=== PATIENT | female | born 1990 | race African-American/Black ===

== ENCOUNTER 2017-04-05 18:19 | Emergency (ER) | payer OTHER ==
--- NOTE | 2017-04-05 18:56 | PDOC ---
Attending Attestation - ED Attending Attestation I have performed the following: I have examined & evaluated the patient, The case was reviewed & discussed with the resident, I agree w/resident's findings & plan, Exceptions are as noted - HPI HPI: 04/05/17 21:35 The patient is a 26 year old female who is , approximately 4 weeks by LMP, who presents to the ED complaining of 3 days of intermittent vaginal bleeding with associated mild suprapubic cramping radiating to the right lower back. Denies heavy bleeding, states intermittent spotting with no clots. The patient denies fever or chills. She denies nausea, vomiting, or diarrhea. She denies abnormal vaginal discharge. She denies frequency, urgency, or dysuria. She has not taken any medications for her current symptoms. She has not yet established care. - Physicial Exam PE: 04/05/17 21:35 agree with resident exam - Medical Decision Making 04/06/17 00:04 FINDINGS: Positive for a single live intrauterine gestation with measurements corresponding to 6 weeks 3 days. A yolk sac is visualized. heart rate 115 beats per minute. No acute or sac abnormalities. There may be a complex left ovarian cyst measuring approximately 1.9 cm. Otherwise normal left ovary. Normal right ovary. THIS DOCUMENT HAS BEEN ELECTRONICALLY SIGNED Jayjay Olivier MD 04/05/2017 23:53 EST Documentation prepared by Yari Beckham, acting as medical dermatologist for Tyler Brewer MD. <Yari Beckham - Last Filed: 04/06/17 00:03> - Resident Resident Name: Sidra Whittaker - ED Attending Attestation I have performed the following: I have examined & evaluated the patient, The case was reviewed & discussed with the resident, I agree w/resident's findings & plan, Exceptions are as noted - Medical Decision Making 04/06/17 00:47 26-year-old female presents with vaginal spotting. Vitals unremarkable. Exam with closed os, scant blood in vault. No CMT, no midline or adnexal ttp. Likely threatened AB, will obtain labs including beta and type and screen and TVUS. 04/06/17 01:55 Labs wnl. TVUS with 6 week with FHR. UA negative for infection. Type and screen was QNS and thus has been resent and pending. 04/06/17 02:34 Spoke with lab, type and screen being run. 04/06/17 03:17 lab called again, type and screen still being run 04/06/17 03:54 Pt is B+. Will DC I discussed the physical exam findings, ancillary test results and final diagnoses with the patient. I answered all of the patient's questions. The patient was satisfied with the care received and felt comfortable with the discharge plan and treatment plan. The patient will call their primary care physician within 24 hours to arrange follow-up and will return to the Emergency Department with any new, persistent or worsening symptoms. <Tyler Brewer - Last Filed: 04/06/17 03:54>
[2017-04-05 19:07] VITALS: BP 108/61; PULSE 69; TEMP 99; BMI 27.4
--- NOTE | 2017-04-05 19:55 | PDOC ---
History of Present Illness - General Chief Complaint: Vaginal Sxs Stated Complaint: VAGINAL BLEEDING Time Seen by Provider: 04/05/17 18:46 History Source: Patient Exam Limitations: No Limitations - History of Present Illness Initial Comments: This is a 26 YOF who is (2 c-sections, one miscarriage, the rest elective abortions) and with h/o anemiua and ischemic CVA in 2013 who presents c/o vaginal spotting and mild suprapubic cramping for the past three days. The vaginal spotting is medium red, scant, and there have been no clots. She believes she is because she had a positive test at [facility] ED shortly after she missed her menstrual period this month. Her LMP was . She has been having constipation, mild headache and mild nausea, but denies any fever, chills, vomiting, numbness, tingling, weakness, vision changes , difficulty walking, or other symptoms. Past History - Past Medical History Home Medications: Ambulatory Orders NK [No Known Home Medication] 04/05/17 Anemia: Yes CVA: Yes (lt side weakness) COPD: No - Reproductive History Is Patient Now?: Yes (#): 6 Para: 2 - Suicide/Smoking/Psychosocial Hx Smoking History: Current every day smoker Number of Cigarettes Smoked Daily: 0 Information on smoking cessation initiated: No Hx Alcohol Use: No Drug/Substance Use Hx: Yes Substance Use Type: Marijuana Review of Systems - Review of Systems Able to Perform ROS?: Yes Constitutional: No: Chills, Fever, Unexplained wgt Loss HEENTM: No: Nose Congestion, Throat Pain Respiratory: No: Cough, Shortness of Breath Cardiac (ROS): No: Chest Pain, Palpitations ABD/GI: Yes: Constipated, Nausea, Other (abdominal pain). No: Diarrhea, Vomiting : Yes: Other (vaginal spotting). No: Burning, Dysuria Musculoskeletal: Yes: Back Pain (left low back pain). No: Neck Pain Integumentary: No: Bruising, Rash Neurological: Yes: Headache (mild). No: Numbness, Tingling, Weakness, Dizziness Endocrine: No: Unexplained Weight Gain, Unexplained Weight Loss *Physical Exam - Vital Signs Last Vital Signs Temp Pulse Resp BP Pulse Ox 99 F 69 16 108/61 100 04/05/17 18:25 04/05/17 18:25 04/05/17 18:25 04/05/17 18:25 04/05/17 18:25 - Physical Exam General Appearance: Yes: Nourished, Appropriately Dressed. No: Apparent Distress HEENT: positive: EOMI, Normal Voice, Hearing Grossly Normal. negative: Scleral Icterus (R), Scleral Icterus (L), Nasal Congestion Neck: positive: Trachea midline, Supple. negative: Tender, Rigid Respiratory/Chest: positive: Lungs Clear, Normal Breath Sounds. negative: Respiratory Distress, Crackles, Rhonchi, Stridor, Wheezing Cardiovascular: positive: Regular Rhythm, Regular Rate. negative: Murmur Gastrointestinal/Abdominal: positive: Normal Bowel Sounds, Soft. negative: Tender, Organomegaly, Pulsatile Mass, Guarding Musculoskeletal: positive: Normal Inspection. negative: Decreased Range of Motion, Vertebral Tenderness Extremity: positive: Normal Capillary Refill, Normal Inspection, Normal Range of Motion. negative: Tender, Cyanosis Integumentary: positive: Normal Color, Dry, Warm. negative: Erythema, Rash, Bruising Neurologic: positive: crew team member II-XII NML intact, Fully Oriented, Alert, Normal Mood/ Affect, Normal Response, Motor Strength 5/5 ED Treatment Course - LABORATORY CBC & Chemistry Diagram: 04/05/17 20:35 04/05/17 20:35 Medical Decision Making - Medical Decision Making 26 YOF who is believes she is about 4 weeks who presents with vaginal spotting and suprapubic cramping x3d. On exam VS wnl and the patient is in no distress, minimal ttp left abdomen, no CVA ttp, no leg swelling, normal neuro exam. On bedside ultrasound gestational sac is visualized without obvious yolk sac or pole or heart beat. DDX IBNLT threatened miscarriage, complete , hematuria, normal menstrual period, etc. Ordered is CBCD, CMP, PT/INR, T&S, UA cx, quant hCG, US early . *DC/Admit/Observation/Transfer Diagnosis at time of Disposition: Threatened miscarriage in early - Discharge Dispostion Disposition: HOME Condition at time of disposition: Stable Admit: No - Referrals - Patient Instructions Printed Discharge Instructions: DI for Threatened Additional Instructions: You were seen in the ER for vaginal bleeding during . We did blood and urine tests and there were no concerning abnormalities. We checked your hormone levels and they are positive at about the number we expect. We did an ultrasound which showed the within your uterus with the baby 's heart rate at about 115 beats/minute. Please follow up with an SOLAR DESIGN ENGINEER doctor for your care. Return to the ER for any new or worsening symptoms like headache, passing out, very heavy vaginal bleeding or passing clots, or severe abdominal pain. - Post Discharge Activity
[2017-04-05 20:57] LABS: BASO % 0.4 % (0-2.0); EOS # 0.2 # (0-4.5); EOS % 4.1 % (0-4.5); LYMPH # 1.1 (8-40); MCH 25.2 pg (25.7-33.7); MCHC 31.7 g/dl (32.0-36.0); MEAN CELL VOLUME 79.5 fl (80-96); MEAN PLT VOLUME 7.9 fl (7.5-11.1); MONO # 0.3 # (3.8-10.2); NEUT # 2.4 # (42.8-82.8); NEUT % 59.9 % (42.8-82.8); PLATELET COUNT 323 K/MM3 (134-434); RDW 24.9 % (11.6-15.6)
[2017-04-05 20:58] LABS: URINE APPEARANCE SLCLOUDY; URINE BILIRUBIN NEGATIVE (NEGATIVE); URINE BLOOD 2+ (NEGATIVE); URINE COLOR LTYELLOW; URINE GLUCOSE (UA) NEGATIVE (NEGATIVE); URINE KETONE NEGATIVE (NEGATIVE); URINE LEUK ESTERASE NEGATIVE (NEGATIVE); URINE NITRITE NEGATIVE (NEGATIVE); URINE PROTEIN NEGATIVE (NEGATIVE); URINE UROBILINOGEN NEGATIVE mg/dL (0.2-1.0)
[2017-04-05 21:00] LABS: URINE BACTERIA RARE /hpf (NONE SEEN); URINE RBC 1 /hpf (0-3); URINE WBC <1 /hpf (3-5)
[2017-04-05 21:11] LABS: INR 1.18 (0.82-1.09); PROTHROMBIN TIME (PATIENT) 13.3 SEC (9.98-11.88)
[2017-04-05 21:27] LABS: ALBUMIN 3.3 g/dl (3.4-5.0); ANION GAP 10 (8-16); BILIRUBIN,TOTAL 0.3 mg/dL (0.2-1.0); CALCIUM 9.1 mg/dL (8.5-10.1); CO2 22 mmol/L (21-32); CREATININE 0.7 mg/dL (0.55-1.02); GLUCOSE,RANDOM 75 mg/dL (74-106); SGOT/AST 15 U/L (15-37); SGPT/ALT 23 U/L (12-78); TOT PROT 7.1 g/dl (6.4-8.2)
[2017-04-05 21:42] LABS: ALK PHOS 60 U/L (45-117)
[2017-04-05 22:25] LABS: ANISOCYTOSIS 2+; MICROCYTOSIS 1+; OVALOCYTE 1+; PLATELET ESTIMATE DECREASED; POIKILOCYTOSIS 1+; POLYCHROMASIA 1+
[2017-04-05 22:50] LABS: URINE LEUK ESTERASE Negative (NEGATIVE)
== END 2017-04-06 04:32 | disposition home or self-care (01) ==
LOC: JER 18:19
DX: O26.891 Other specified pregnancy related conditions, first trimester (principal); Z3A.01 Less than 8 weeks gestation of pregnancy; O20.0 Threatened abortion
CPT/HCPCS: 36415; 76801-TC; 80053; 81003; 81015; 83690; 84702; 85025; 85610; 86850; 86900; 86901; 87086; 99282-25

== ENCOUNTER 2017-04-18 00:04 | Emergency (ER) | payer OTHER ==
[2017-04-18 00:32] LABS: BASO % 0.6 % (0-2.0); HEMATOCRIT 33.3 % (32.4-45.2); HEMOGLOBIN 10.8 GM/dL (10.7-15.3); LYMPH % 27.3 % (8-40); MCH 26.5 pg (25.7-33.7); MCHC 32.5 g/dl (32.0-36.0); MEAN CELL VOLUME 81.4 fl (80-96); MEAN PLT VOLUME 7.1 fl (7.5-11.1); MONO % 8.4 % (3.8-10.2); NEUT % 60.7 % (42.8-82.8); PLATELET COUNT 367 K/MM3 (134-434); RBC 4.09 M/mm3 (3.60-5.2); RDW 25.4 % (11.6-15.6); WHITE BLOOD COUNT 7.3 K/mm3 (4.0-10.0)
[2017-04-18 00:33] LABS: URINE APPEARANCE CLEAR; URINE BILIRUBIN NEGATIVE (NEGATIVE); URINE BLOOD 3+ (NEGATIVE); URINE GLUCOSE (UA) NEGATIVE (NEGATIVE); URINE KETONE NEGATIVE (NEGATIVE); URINE LEUK ESTERASE NEGATIVE (NEGATIVE); URINE NITRITE NEGATIVE (NEGATIVE); URINE UROBILINOGEN NEGATIVE mg/dL (0.2-1.0)
[2017-04-18 00:36] LABS: ADD RBC MORPHOLOGY YES
--- NOTE | 2017-04-18 00:43 | PDOC ---
History of Present Illness - General Stated Complaint: ABDOMINAL PAIN Time Seen by Provider: 04/18/17 00:09 - History of Present Illness Initial Comments: 04/18/17 00:09 vag bleed 04/03/2017 lmp: 26-year-old female presents to the emergency department complaining of pelvic pain/vaginal bleed 6 days which has increased over the past 3 hours. Patient denies fever, chills, nausea/vomiting, chest pain, shortness of breath, flank pains, urinary symptoms: Frequency/urgency/hesitancy, hematuria. Pain is described as 8/10 cramping intermittent discomfort. There are no alleviating or exacerbating factors. Patient had a transvaginal ultrasound done on 04/05/2017 which shows a single intrauterine measured at 6 weeks and 3 days. Past History - Past Medical History Allergies/Adverse Reactions: Allergies Allergy/AdvReac Type Severity Reaction Status Date / Time No Known Allergies Allergy Verified 04/18/17 01:10 Home Medications: Ambulatory Orders NK [No Known Home Medication] 04/05/17 Anemia: Yes CVA: Yes (lt side weakness) COPD: No - Reproductive History (#): 6 Para: 2 - Suicide/Smoking/Psychosocial Hx Smoking History: Current every day smoker Number of Cigarettes Smoked Daily: 0 Hx Alcohol Use: No Drug/Substance Use Hx: Yes Substance Use Type: Marijuana Review of Systems - Review of Systems Able to Perform ROS?: Yes Comments:: 04/18/17 02:07 CONSTITUTIONAL: Absent: fever, chills, diaphoresis, generalized weakness, malaise, loss of appetite HEENT: Absent: rhinorrhea, nasal congestion, throat pain, throat swelling, difficulty swallowing, mouth swelling, ear pain, eye pain, visual Changes CARDIOVASCULAR: Absent: chest pain, loss of consciousness, palpitations, irregular heart rate, peripheral edema RESPIRATORY: Absent: cough, shortness of breath, dyspnea with exertion, orthopnea, wheezing, stridor, hemoptysis GASTROINTESTINAL: +pelvic abd cramping/vaginal bleed Absent: abdominal distension, nausea, vomiting, diarrhea, constipation, melena, hematochezia GENITOURINARY: Absent: dysuria, frequency, urgency, hesitancy, hematuria, flank pain, genital pain SKIN: Absent: rash, itching, pallor Is the patient limited Malaysian proficient: No *Physical Exam - Physical Exam Comments: 04/18/17 02:07 GENERAL: Well developed, well nourished. Awake and alert. No acute distress. HEENT: Normocephalic, atraumatic. PERRLA, EOMI. No conjunctival pallor. Sclera are non- icteric. Moist mucous membranes. Oropharynx is clear. NECK: Supple. Full ROM. No JVD. Carotid pulses 2+ and symmetric, without bruits. No thyromegaly. No lymphadenopathy. CARDIOVASCULAR: Regular rate and rhythm. No murmurs, rubs, or gallops. Distal pulses are 2+ and symmetric. PULMONARY: No evidence of respiratory distress. Lungs clear to auscultation bilaterally. No wheezing, rales or rhonchi. ABDOMINAL: suprapubic pain on palp Soft. Non-distended. No rebound or guarding. No organomegaly. Normoactive bowel sounds. MUSCULOSKELETAL Normal range of motion at all joints. No bony deformities or tenderness. No CVA tenderness. EXTREMITIES: No cyanosis. No clubbing. No edema. No calf tenderness. SKIN: Warm and dry. Normal capillary refill. No rashes. No jaundice. Pelvic: External genitalia normal without lesions. Vaginal vault is blood Cervix is long and closed. ED Treatment Course - LABORATORY CBC & Chemistry Diagram: 04/17/17 23:59 04/17/17 23:59 - RADIOLOGY Radiograph Interpretation: 04/18/17 02:09 Transvaginal US: 04/18/17 02:49 Missed Medical Decision Making - Medical Decision Making 04/18/17 02:48 26-year-old female presents to the emergency department complaining of suprapubic pain with vaginal bleed. Patient had ultrasound done on 04/05/2017 with a beta of 33,389.6. Today's beta hCG is 5774.6. Patient passed a large clot this evening. Transvaginal ultrasound shows missed . Patient's pelvic exam shows a closed os on her cervix. She will follow with OB. Type and screen is RH POSITIVE *DC/Admit/Observation/Transfer Diagnosis at time of Disposition: Missed - Discharge Dispostion Disposition: HOME Condition at time of disposition: Stable Admit: No - Referrals Referrals: Garo Hair MD [Staff Physician] - - Patient Instructions Printed Discharge Instructions: DI for Miscarriage Additional Instructions: Pelvic rest/no sex You must follow-up with the youth minister within 48 hours You beta quantitative on April 05 was 33,389.6. Today's beta hCG quantitative is 5774.6 You transvaginal ultrasound shows a missed Return back to the emergency department for severe/persistent or worsening symptoms - Post Discharge Activity
[2017-04-18 01:01] LABS: URINE PROTEIN 1+ (NEGATIVE)
[2017-04-18] MEDS ORDERED: ACETAMINOPHEN 325 MG TABLET (FP) PO ONE (01:01)
[2017-04-18 01:02] LABS: URINE COLOR PINK
[2017-04-18 01:03] LABS: EPI CELLS FEW /HPF (FEW); URINE BACTERIA RARE /hpf (NONE SEEN); URINE MUCUS RARE
[2017-04-18 01:09] VITALS: BP 150/75; PULSE 99; TEMP 98.9; BMI 28.3
[2017-04-18 01:14] LABS: ALBUMIN 3.4 g/dl (3.4-5.0); ALK PHOS 61 U/L (45-117); ANION GAP 13 (8-16); BILIRUBIN,TOTAL 0.2 mg/dL (0.2-1.0); BLOOD UREA NITROGEN 11 mg/dL (7-18); CHLORIDE 105 mmol/L (98-107); CO2 20 mmol/L (21-32); CREATININE 0.7 mg/dL (0.55-1.02); GLUCOSE,RANDOM 105 mg/dL (74-106); POTASSIUM 3.7 mmol/L (3.5-5.1); SGOT/AST 12 U/L (15-37); SGPT/ALT 16 U/L (12-78); SODIUM 138 mmol/L (136-145)
== END 2017-04-18 03:08 | disposition home or self-care (01) ==
LOC: JER 00:04
DX: O26.891 Other specified pregnancy related conditions, first trimester (principal); O02.1 Missed abortion; Z3A.01 Less than 8 weeks gestation of pregnancy
CPT/HCPCS: 36415; 76817-TC; 80053; 81003; 81015; 84702; 85025; 86850; 86900; 86901; 99281-25

== ENCOUNTER 2017-05-10 13:29 | Day surgery (SDC) | payer OTHER ==
[2017-05-07 15:23] VITALS: BMI 27.6
--- NOTE | 2017-05-10 14:17 | HP ---
Past Medical History - Primary Care Physician PCP:: Garo Hair - Admission Chief Complaint: vaginal bleeding, incomplete History of Present Illness: 26 yo f with hx of spont , continue to have vaginal bleeding , sono showed thicken irregular EM with vascularity consistant with retained product, admitted for suction D&C, risks discussed , ulternative explained. History Source: Patient Limitations to Obtaining History: No Limitations - Past Medical History COMMERCIAL LAWN SPECIALIST: Yes: CVA Heme/Onc: Yes: Anemia - Past Surgical History Past Surgical History: Yes: Hx Myomectomy: No Hx Transabdominal Cerclage: No - Smoking History Smoking history: Never smoked Have you smoked in the past 12 months: No Aproximately how many cigarettes per day: 0 - Alcohol/Substance Use Hx Alcohol Use: Yes (SOCIALLY) - Social History Usual Living Arrangement: Yes: With Spouse History of Recent Travel: No Home Medications - Allergies Allergies/Adverse Reactions: Allergies Allergy/AdvReac Type Severity Reaction Status Date / Time No Known Allergies Allergy Verified 05/10/17 14:12 - Home Medications Home Medications: Ambulatory Orders Doxycycline Calcium 100 mg PO BID 05/07/17 Ibuprofen [Motrin Ib] 200 mg PO PRN PRN 05/07/17 Tylenol 650 mg PO PRN PRN 05/07/17 Review of Systems - Review of Systems Constitutional: reports: Weakness Eyes: reports: No Symptoms HENT: reports: No Symptoms Neck: reports: No Symptoms Cardiovascular: reports: No Symptoms Respiratory: reports: No Symptoms Gastrointestinal: reports: No Symptoms Genitourinary: reports: Pain, Vaginal Bleeding Breasts: reports: No Symptoms Reported Musculoskeletal: reports: No Symptoms Integumentary: reports: No Symptoms Neurological: reports: No Symptoms Endocrine: reports: No Symptoms Hematology/Lymphatic: reports: No Symptoms Psychiatric: reports: No Symptoms Physical Exam-MANAGER EMS Vital Signs: Vital Signs Temperature 97.9 F 05/10/17 14:07 Pulse Rate 70 05/10/17 14:07 Respiratory Rate 16 05/10/17 14:07 Blood Pressure 118/74 05/10/17 14:07 O2 Sat by Pulse Oximetry (%) 100 05/10/17 14:08 Constitutional: Yes: Well Nourished, No Distress, Calm Eyes: Yes: WNL, Conjunctiva Clear, EOM Intact HENT: Yes: WNL, Atraumatic, Normocephalic Neck: Yes: WNL, Supple, Trachea Midline Cardiovascular: Yes: WNL, Regular Rate and Rhythm Respiratory: Yes: WNL, Regular, CTA Bilaterally Gastrointestinal: Yes: WNL ...Rectal Exam: Yes: WNL Renal/: Yes: WNL Pelvis: Yes: WNL External Genitalia: Yes: Normal Internal Exam Deferred: No Vaginal Exam: Yes: Bleeding Cervix: Yes: Normal, Bleeding Uterus: Yes: Normal, Soft Adnexa: Not Palpable: Left, Right Breast(s): Yes: WNL Musculoskeletal: Yes: WNL Extremities: Yes: WNL Edema: No Integumentary: Yes: WNL Neurological: Yes: WNL, Alert, Oriented ...Motor Strength: WNL Psychiatric: Yes: WNL, Alert, Oriented Problem List - Problem (1) Incomplete Code(s): O03.4 - INCOMPLETE SPONTANEOUS WITHOUT COMPLICATION Assessment/Plan suction D&C , rba discussed
[2017-05-10] MEDS ORDERED: PROPOFOL 20 ML ONE ×2 (14:43→14:44)
[2017-05-10] MEDS ORDERED: MIDAZOLAM HCL 2 MG/2 ML SINGLE DOSE VIAL ONE (14:43)
[2017-05-10] MEDS ORDERED: LIDOCAINE HCL/PF 2% SDV 5ML VIAL ONE (14:44)
[2017-05-10] MEDS ORDERED: KETOROLAC TROMETHAMINE 30 MG/1 ML VIAL ONE (15:06)
[2017-05-10] MEDS ORDERED: ONDANSETRON 4 MG/2 ML VIAL IVPUSH PRN ×2 (15:20→15:26)
[2017-05-10] MEDS ORDERED: IBUPROFEN 800 MG/8 ML IJ IVPB PRN (15:20)
[2017-05-10] MEDS ORDERED: IBUPROFEN 600 MG TABLET (FP) PO PRN (15:20)
[2017-05-10] MEDS ORDERED: oxyCODONE HCL 5 MG TABLET PO PRN (15:20)
[2017-05-10] MEDS ORDERED: PROMETHAZINE HCL 25 MG/1 ML VIAL IVPUSH PRN (15:26)
[2017-05-10] MEDS ORDERED: ELECTROLYTE-148 SOLN 1,000 ML IV SCH (15:30)
[2017-05-10] MEDS ORDERED: LACTATED RINGERS SOLUTION 1,000 ML IV SCH (15:30)
[2017-05-10] MEDS ORDERED: IBUPROFEN 800 MG/8 ML IJ IVPB ONE ×2 (16:34→16:39)
[2017-05-10] MEDS ORDERED: IBUPROFEN 600 MG TABLET (FP) PO ONE (17:10)
[2017-05-10] MEDS ORDERED: oxyCODONE HCL 5 MG TABLET PO ONE (17:15)
[2017-05-10] MEDS ORDERED: oxyCODONE HCL 5 MG TABLET ONE (17:16)
[2017-05-10 17:39] VITALS: TEMP 98.3
[2017-05-10 17:58] VITALS: BP 108/64; PULSE 68
--- NOTE | 2017-05-10 19:43 | OP ---
DATE OF OPERATION: 05/10/2017 PREOPERATIVE DIAGNOSIS: Incomplete . POSTOPERATIVE DIAGNOSIS: Incomplete . PROCEDURE: Suction curettage. SURGEON: Garo Hair MD ANESTHESIA: General. ANESTHESIOLOGIST: Geovanna Lam MD ESTIMATED BLOOD LOSS: 50 mL DESCRIPTION OF OPERATIVE PROCEDURE: Patient was taken to the operating room. Under adequate general anesthesia, in dorsal lithotomy position, examination under anesthesia revealed the external genitalia to be normal; vagina with a small amount of blood in the vault; cervix was closed with small bleeding from the os; uterus was anteverted, slightly prominent, and soft; adnexa no masses palpable. Then, with a weighted speculum in the vagina, anterior lip of the cervix was grasped with a single-tooth tenaculum. Uterine cavity was sounded to 9 cm. Then, cervix was gradually dilated with Hegar dilator, suction curette was inserted, and the contents were suctioned. Patient tolerated the procedure well, left the OR in good condition. Aicha [id number]
--- NOTE | 2017-05-18 13:48 | PATH ---
Surgical Pathology Report Patient Name: LUIS CHAVES [facility]. Rec. #: [id number] /Age/Gender: 1990 (Age: 26) / F Account: [id number] Location: [facility] SURGICAL Taken: 05/10/2017 Received: 05/11/2017 Reported: 05/18/2017 Physicians: Garo Hair M.D. Specimen(s) Received UTERINE CONTENTS Clinical History Incomplete Final Diagnosis UTERINE CONTENTS, SUCTION DILATATION AND CURETTAGE: IMMATURE CHORIONIC VILLI, DECIDUA, AND GESTATIONAL ENDOMETRIUM CONSISTENT WITH PRODUCTS OF CONCEPTION. BENIGN CERVICAL TISSUE IDENTIFIED. Electronically Signed Mikaela Robles M.D. Gross Description Received in formalin labeled "uterine contents," is a 6.4 x 3.5 x 0.5 cm aggregate of larios-brown soft tissue fragments. No definite villous tissue or somatic tissue is identified. The specimen is entirely submitted in 3 cassettes. 05/11/2017 saudi05/11/2017
== END 2017-05-10 17:46 | disposition home or self-care (01) ==
LOC: JASU-SURG 13:29
PROVIDERS: ATTEND Obstetrics & Gynecology
PROC: 10D17ZZ Extraction of Products of Conception, Retained, Via Natural or Artificial Opening (ICD-10-PCS; principal; 2017-05-10 14:30)
DX: O03.4 Incomplete spontaneous abortion without complication (principal)
CPT/HCPCS: 88305-TC; 94760

== ENCOUNTER 2017-11-28 11:56 | Emergency (ER) | payer OTHER ==
--- NOTE | 2017-11-28 12:12 | PDOC ---
Attending Attestation - Resident Resident Name: Wen Calderón - ED Attending Attestation I have performed the following: I have examined & evaluated the patient, The case was reviewed & discussed with the resident, I agree w/resident's findings & plan, Exceptions are as noted - HPI HPI: 11/28/17 13:56 The patient is a 26 year old female, , 7 weeks , with pmhx of CVA ( 2012) who presents to the ED with complaints of multiple episodes of nonbloody, nonbilious vomiting. She reports 10 episodes yesterday and three today. The patient also reports having left sided numbness that began today at 11am a/w gradual onset R sided headache right after she got out of the shower. She denies any weakness, blurred vision, dizziness, or other focal neurological deficits. Denies any fevers, chills, cough, SOB, CP, or urinary complaints. - Physicial Exam PE: 11/28/17 12:45 agree with resident exam - Medical Decision Making 11/28/17 12:45 26yo F hx CVA, currently 7 weeks presents to the ED with multiple episodes of vomiting and L sided weakness since 11am. Code perez activated. CTH obtained with no acute blood (pt consented, aware of risks of radiation to current but that benefit of diagnosing cva outweighed that risk). NIHSS 1 at this time for decreased sensation to light touch on LUE. Case discussed with Dr. Sauer, will hold off on TPA given low stroke scale. Dr. Sauer recommends we hold off on ASA given low NIHSS and to obtain MRI and MRV noncon of the brain. DDx includes CVA vs TIA vs venous thrombosis vs atypical migraine. 11/28/17 13:37 CTH shows old R frontal CVA. No acute stroke. MRI unavailable per radiology. Will discuss possible transfer with Dr. Sauer, awaiting call back 11/28/17 13:53 Will transfer pt for MRI/MRV as we have no MRI in house. Case discussed with neuro at [facility] by Dr. Calderón who accepts pt for transfer. Pt consented for transfer. Accepted by Dr. Jain at [facility] Heart Score/ECG Review #1 11/28/17 19:19 Twelve-lead EKG was performed and reviewed by me. Normal sinus rhythm, rate 63. Normal axis and intervals. No ST elevations or T-wave inversions.
--- NOTE | 2017-11-28 12:18 | PDOC ---
History of Present Illness - General Chief Complaint: Nausea/Vomiting Stated Complaint: 7WKS PREG/VOMITTING Time Seen by Provider: 11/28/17 12:07 History Source: Patient - History of Present Illness Initial Comments: 11/28/17 12:23 26 year old (1 miscarriage, 4 elective abortions) at a self-reported 7 weeks gestation and PMH of CVA (2012 no residual deficits) and hyperemesis gravidum presents to the ED c/o 2 day h/o nausea and vomiting. Patient states she had 10-12 episodes of NBNB emesis yesterday and 3 episodes today. She also started feeling some left sided weakness today prompting her visit to the ED. Patient notes she has had limited pre-bernadine care 2/ to insurance changes but has an signal worker helper appointment scheduled for 12/05. NKDA Surgical: C/S x2 Social: daily marijuana, denies nicotine, denies alcohol Past History - Past Medical History Allergies/Adverse Reactions: Allergies Allergy/AdvReac Type Severity Reaction Status Date / Time No Known Allergies Allergy Verified 05/10/17 14:12 Home Medications: Ambulatory Orders Doxycycline Calcium 100 mg PO BID 05/07/17 Ibuprofen [Motrin Ib] 200 mg PO PRN PRN 05/07/17 Tylenol 650 mg PO PRN PRN 05/07/17 Ibuprofen [Motrin -] 600 mg PO QID #28 tablet 05/10/17 Anemia: Yes Asthma: No Cancer: No Cardiac Disorders: No CVA: Yes (lt side weakness 2012) COPD: No CHF: No Dementia: No Diabetes: No GI Disorders: No Disorders: No HTN: No Hypercholesterolemia: No Liver Disease: No Seizures: No Thyroid Disease: No - Surgical History Abdominal Surgery: No Appendectomy: No Cardiac Surgery: No Cholecystectomy: No Lung Surgery: No Neurologic Surgery: No Orthopedic Surgery: No - Reproductive History (#): 6 Para: 2 - Suicide/Smoking/Psychosocial Hx Smoking History: Never smoked Have you smoked in the past 12 months: No Number of Cigarettes Smoked Daily: 0 Hx Alcohol Use: No Drug/Substance Use Hx: No Substance Use Type: Marijuana Hx Substance Use Treatment: Yes Review of Systems - Review of Systems Constitutional: No: Chills, Fever HEENTM: No: Blurred Vision, Double Vision Respiratory: No: Cough, Shortness of Breath Cardiac (ROS): No: Chest Pain, Lightheadedness, Palpitations, Syncope ABD/GI: Yes: Nausea. No: Constipated, Diarrhea, Vomiting : No: Burning, Dysuria Neurological: Yes: Numbness, Weakness *Physical Exam - Vital Signs Last Vital Signs Temp Pulse Resp BP Pulse Ox 98.4 F 74 20 113/85 100 11/28/17 12:09 11/28/17 12:09 11/28/17 12:09 11/28/17 12:09 11/28/17 12:09 - Physical Exam General Appearance: Yes: Nourished, Appropriately Dressed HEENT: positive: EOMI, ANIVAL, Normal Voice, Hearing Grossly Normal Neck: positive: Trachea midline, Supple Respiratory/Chest: positive: Lungs Clear, Normal Breath Sounds Cardiovascular: positive: S1, S2. negative: Edema, JVD Gastrointestinal/Abdominal: positive: Normal Bowel Sounds, Soft Musculoskeletal: negative: CVA Tenderness (R), CVA Tenderness (L) Extremity: positive: Normal Inspection Integumentary: positive: Normal Color, Dry, Warm Neurologic: positive: Fully Oriented, Alert, Numbness. negative: Finger to Nose , Confused ED Treatment Course - LABORATORY CBC & Chemistry Diagram: 11/28/17 12:42 11/28/17 12:42 Medical Decision Making - Medical Decision Making 11/28/17 12:31 26 year old female at a self-reported 7 weeks gestation presents to the ED c/o nausea and vomiting as well as L sided weakness. No focal neurologic deficits on PE. H/o recent stoppage of marijuana use. Frontal Diagnosis: Cerebral venous sinus thrombosis, TIA, electrolyte abnormality, hyperemesis gravidum, hyperemsis 2/2 to marijuana withdrawal. PLAN: 1. CBC, CMP, B-HCG 2. UA 3. Neuro consult - ? MRV Reasess. 11/28/17 12:59 On repeat exam patient notes she has "numbness" and that s/p CVA she received Warfarin and Heparin. Patient reports to nursing staff that she received tPA. 11/28/17 13:01 Case d/w [facility], EM Attending, Dr. Lyman, imaging showed R posterior Cruz Infarct and possible thrombosis - no CT or MRI record in EMR; notes do not indicate whether patient recieved tPA Code Doss Activated 11/28/17 13:15 Dr. Nassef discussed case w/Dr. Sauer (neurology) recommends: permissive HTN, Trendelenburg to increase CPP, MRI + MRV 11/28/17 13:48 MRI/MRV not available at our facility - case d/w Dr. Sauer indicates patient should be transferred. 11/28/17 14:09 Case d/w Dr. Jain, neurology. Patient accepted for transfer to [facility]. *DC/Admit/Observation/Transfer Diagnosis at time of Disposition: Numbness and tingling in left arm - Discharge Dispostion Disposition: TRANSFER ACUTE CARE/OTHER HOSP Condition at time of disposition: Stable - Referrals Referrals: Tee Reza [Primary Care Provider] - - Patient Instructions - Post Discharge Activity
[2017-11-28 12:19] VITALS: BMI 26.4
[2017-11-28] MEDS ORDERED: SODIUM CHLORIDE 0.9% 500 ML INFUS.BAG IV ONE (12:21)
[2017-11-28 13:11] LABS: INR 1.26 (0.83-1.09); PROTHROMBIN TIME (PATIENT) 14.2 SEC (9.7-13.0)
[2017-11-28 13:13] LABS: BASO % 0.5 % (0-2.0); EOS % 0.4 % (0-4.5); HEMATOCRIT 36.2 % (32.4-45.2); HEMOGLOBIN 11.8 GM/dL (10.7-15.3); LYMPH % 12.8 % (8-40); MCH 26.7 pg (25.7-33.7); MCHC 32.7 g/dl (32.0-36.0); MEAN CELL VOLUME 81.5 fl (80-96); MEAN PLT VOLUME 7.7 fl (7.5-11.1); MONO % 8.5 % (3.8-10.2); NEUT % 77.8 % (42.8-82.8); PLATELET COUNT 378 K/MM3 (134-434); RBC 4.44 M/mm3 (3.60-5.2); RDW 18.6 % (11.6-15.6); WHITE BLOOD COUNT 5.4 K/mm3 (4.0-10.0)
[2017-11-28 13:14] LABS: ACTIVATED PTT 23.6 SECONDS (25.2-36.5)
[2017-11-28] MEDS ORDERED: SODIUM CHLORIDE 1,000 ML IV SCH (13:15)
[2017-11-28 13:24] LABS: ALBUMIN 3.6 g/dl (3.4-5.0); ALK PHOS 63 U/L (45-117); ANION GAP 13 (8-16); BILIRUBIN,TOTAL 0.3 mg/dL (0.2-1.0); BLOOD UREA NITROGEN 21 mg/dL (7-18); CALCIUM 9.1 mg/dL (8.5-10.1); CHLORIDE 106 mmol/L (98-107); CO2 18 mmol/L (21-32); CREATININE 0.7 mg/dL (0.55-1.02); GLUCOSE,RANDOM 82 mg/dL (74-106); SGPT/ALT 17 U/L (12-78); SODIUM 137 mmol/L (136-145); TOT PROT 7.7 g/dl (6.4-8.2)
[2017-11-28 13:40] LABS: MAGNESIUM 2.1 mg/dL (1.8-2.4); SGOT/AST 20 U/L (15-37)
[2017-11-28] MEDS ORDERED: ONDANSETRON 4 MG/2 ML VIAL IVPUSH ONE (13:43)
[2017-11-28] MEDS ORDERED: ONDANSETRON 4 MG/2 ML VIAL ONE (13:43)
[2017-11-28] MEDS ORDERED: ACETAMINOPHEN INJECTION 100 ML IVPB ONE (13:47)
[2017-11-28 14:45] VITALS: BP 102/65; PULSE 68; TEMP 98.1
[2017-11-28 14:48] LABS: CHOLESTEROL 153 mg/dL (50-200); HDL CHOLESTEROL 44 mg/dL (40-60); TRIGLYCERIDES 92 mg/dL (35-160)
--- NOTE | 2017-11-28 19:13 | EKG ---
Test Reason : Blood Pressure : / mmHG Vent. Rate : 063 BPM Atrial Rate : 063 BPM P-R Int : 152 ms QRS Dur : 092 ms QT Int : 420 ms P-R-T Axes : 014 060 051 degrees QTc Int : 429 ms NORMAL SINUS RHYTHM NORMAL ECG NO PREVIOUS ECGS AVAILABLE Confirmed by MD MADHAVI, SUSIE ([id number]) on 11/28/2017 7:13:25 PM Referred By: Confirmed By:SUSIE HENDRICKSON MD
== END 2017-11-28 14:45 | disposition short-term general hospital (02) ==
LOC: JER 11:56
PROC: 3E033GC Introduction of Other Therapeutic Substance into Peripheral Vein, Percutaneous Approach (ICD-10-PCS; principal; 2017-11-28)
DX: O26.891 Other specified pregnancy related conditions, first trimester (principal); O21.0 Mild hyperemesis gravidarum; R20.2 Paresthesia of skin; Z86.73 Personal history of transient ischemic attack (TIA), and cerebral infarction without residual deficits; Z3A.01 Less than 8 weeks gestation of pregnancy
CPT/HCPCS: 36415; 70450-TC; 80053; 82465; 82550; 83718; 83721; 83735; 84478; 84484; 84702; 85025; 85610; 85730; 93005; 93010; 96374; 99285-25

== ENCOUNTER 2018-03-19 10:17 | Emergency (ER) | payer OTHER ==
[2018-03-19 10:35] VITALS: BMI 26.6
--- NOTE | 2018-03-19 10:51 | PDOC ---
History of Present Illness - General Chief Complaint: Pain, Acute Stated Complaint: LEFT LEG PAIN Time Seen by Provider: 03/19/18 10:26 History Source: Patient Exam Limitations: No Limitations - History of Present Illness Initial Comments: 03/19/18 10:37 Pt is a 27yo F 5 months with PMH of stroke with left sided weakness, anemia presenting to ED with complaints of L posterior thigh pain. Pt said pain started 6 days ago on Wednesday. She does not recall any injury. She went to [facility] 2 days ago but could not stay for doppler study. She was told to return to ED if pain got worse or did not change. Pt says pain in located in L thigh, worse without movements, describes feeling as "serjio horse". Stays in thigh, does not radiate. States that thigh looks more swollen than usual. Denies back pain, injury, chest pain, sob, syncope, new neurological deficits, urinary symptoms, fevers, chills. Family history of Lupus. She had workup done when she had her stroke in 2012 but says tests were negative PMH: see hpi PSH: Meds: none Allergies: nkda Past History - Past Medical History Allergies/Adverse Reactions: Allergies Allergy/AdvReac Type Severity Reaction Status Date / Time No Known Allergies Allergy Verified 12/09/17 14:06 Home Medications: Ambulatory Orders 105/Iron/Folic AC/Dha [Prena1 True Combo Pack] 1 each PO DAILY Anemia: Yes Asthma: No Cancer: No Cardiac Disorders: No CVA: Yes (lt side weakness 2012) COPD: No CHF: No Dementia: No Diabetes: No GI Disorders: No Disorders: No HTN: No Hypercholesterolemia: No Liver Disease: No Seizures: No Thyroid Disease: No - Surgical History Abdominal Surgery: No Appendectomy: No Cardiac Surgery: No Cholecystectomy: No Lung Surgery: No Neurologic Surgery: No Orthopedic Surgery: No - Reproductive History (#): 6 Para: 2 - Suicide/Smoking/Psychosocial Hx Smoking History: Never smoked Have you smoked in the past 12 months: No Number of Cigarettes Smoked Daily: 0 Information on smoking cessation initiated: No Hx Alcohol Use: No Drug/Substance Use Hx: No Substance Use Type: Marijuana Hx Substance Use Treatment: Yes *Physical Exam - Vital Signs Last Vital Signs Temp Pulse Resp BP Pulse Ox 97.6 F 90 16 112/64 100 03/19/18 10:17 03/19/18 10:17 03/19/18 10:17 03/19/18 10:17 03/19/18 10:17 - Physical Exam Musculoskeletal: positive: Other (no mass, no hernia, ). negative: Decreased Range of Motion, Vertebral Tenderness Neurologic: negative: Motor Strength 5/5 (5/5 R side. 4/5 L side due to residual L sided weakness) Deep Tendon Reflexes: Knee (L): 2+, Knee (R): 2+ Moderate Sedation - Procedure Monitoring Vital Signs: Procedure Monitoring Vital Signs Temperature 97.6 F 03/19/18 10:17 Pulse Rate 90 03/19/18 10:17 Respiratory Rate 16 03/19/18 10:17 Blood Pressure 112/64 03/19/18 10:17 O2 Sat by Pulse Oximetry (%) 100 03/19/18 10:17 ED Treatment Course - LABORATORY CBC & Chemistry Diagram: 03/19/18 11:15 03/19/18 11:15 Medical Decision Making - Medical Decision Making 03/19/18 11:15 Pt is a 27yo F 5 months with PMH of stroke with left sided weakness, anemia presenting to ED with complaints of L posterior thigh pain. Pt said pain started 6 days ago on Wednesday. She does not recall any injury. She went to [facility] 2 days ago but could not stay for doppler study. She was told to return to ED if pain got worse or did not change. Pt says pain in located in L thigh, worse without movements, describes feeling as "serjio horse". Stays in thigh, does not radiate. States that thigh looks more swollen than usual. Denies back pain, injury, chest pain, sob, syncope, new neurological deficits, urinary symptoms, fevers, chills. Family history of Lupus. She had workup done when she had her stroke in 2012 but says tests were negative Vitals: wnl PE: systolic murmur. no thigh tenderness. Ddx: dvt, msk, electrolyte imbalance. -pt could be clotted because (hypercoag state), from heart (murmur, could be septal defect). Will order doppler of LLE arterial and vascular. basic labs ordered. 03/19/18 11:16 *DC/Admit/Observation/Transfer Diagnosis at time of Disposition: Left thigh pain - Discharge Dispostion Condition at time of disposition: Good Decision to Admit order: No - Referrals Referrals: Tee Reza [Primary Care Provider] - Ric Muniz MD [Staff Physician] - - Patient Instructions Printed Discharge Instructions: DI for Leg Pain Additional Instructions: You were seen here today for leg pain. Your lab tests were normal. I do not know exactly what is causing your pain but it could be related to the exercise you did. You can take Tylenol for pain if needed. I suggest seeing an orthopedic doctor for further evaluation and management of your symptoms: -Dr. Muniz/ Dr. Craven/ Dr. Flynn . 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 Come back to the emergency room if pain gets worse, you are unable to move your leg, you are unable to walk, you have slurred speech, you have abdominal pain, you have contractions, you have vaginal bleeding or if any new concerning symptom develops. Thank you - Post Discharge Activity
[2018-03-19] MEDS ORDERED: ACETAMINOPHEN 500 MG TABLET (FP) PO ONE (11:26)
[2018-03-19 12:27] LABS: BASO % 0.4 % (0-2.0); EOS % 1.7 % (0-4.5); HEMATOCRIT 32.5 % (32.4-45.2); HEMOGLOBIN 11.5 GM/dL (10.7-15.3); MCH 33.3 pg (25.7-33.7); MCHC 35.3 g/dl (32.0-36.0); MEAN CELL VOLUME 94.2 fl (80-96); MEAN PLT VOLUME 7.2 fl (7.5-11.1); MONO % 7.3 % (3.8-10.2); NEUT % 72.6 % (42.8-82.8); PLATELET COUNT 350 K/MM3 (134-434); RBC 3.44 M/mm3 (3.60-5.2); RDW 15.6 % (11.6-15.6); WHITE BLOOD COUNT 5.7 K/mm3 (4.0-10.0)
[2018-03-19 12:40] LABS: INR 1.04 (0.83-1.09); PROTHROMBIN TIME (PATIENT) 12.3 SEC (9.7-13.0)
[2018-03-19 12:43] LABS: ACTIVATED PTT 25.8 SECONDS (25.2-36.5)
[2018-03-19 12:59] LABS: ALBUMIN 2.7 g/dl (3.4-5.0); ALK PHOS 67 U/L (45-117); ANION GAP 12 MMOL/L (8-16); BILIRUBIN,TOTAL 0.2 mg/dL (0.2-1); BLOOD UREA NITROGEN 9 mg/dL (7-18); CALCIUM 8.9 mg/dL (8.5-10.1); CHLORIDE 108 mmol/L (98-107); CO2 21 mmol/L (21-32); CREATININE 0.5 mg/dL (0.55-1.3); GLUCOSE,RANDOM 69 mg/dL (74-106); MAGNESIUM 1.7 mg/dL (1.8-2.4); POTASSIUM 3.8 mmol/L (3.5-5.1); SGOT/AST 14 U/L (15-37); SGPT/ALT 20 U/L (13-61); SODIUM 140 mmol/L (136-145); TOT PROT 6.5 g/dl (6.4-8.2)
[2018-03-19] MEDS ORDERED: KETOROLAC TROMETHAMINE 30 MG/1 ML VIAL IM ONE (13:22)
--- NOTE | 2018-03-19 13:30 | PDOC ---
Attending Attestation - Resident Resident Name: JenniferDalia - ED Attending Attestation I have performed the following: I have examined & evaluated the patient, The case was reviewed & discussed with the resident, I agree w/resident's findings & plan, Exceptions are as noted - HPI HPI: 03/19/18 13:26 27 F 5 months with PMH of CVA with residual L side weakness presents to ED with L thigh pain. Pt reports pain in the back of her L thigh that is worse with bending the leg and walking. Pt denies any trauma or falls. She states that the pain started last week after she did squats. Denies any swelling in the leg. No h/o DVT. - Physicial Exam PE: 03/19/18 13:28 "GENERAL: Awake, alert, and fully oriented, in no acute distress. HEAD: No signs of trauma EYES: PERRLA, EOMI, sclera anicteric, conjunctiva clear ENT: Auricles normal inspection, hearing grossly normal, nares patent, oropharynx clear without exudates. Moist mucosa NECK: Nontender, no stepoffs, Normal ROM, supple, no lymphadenopathy, JVD, or masses LUNGS: Breath sounds equal, clear to auscultation bilaterally. No wheezes, and no crackles HEART: Regular rate and rhythm, normal S1 and S2, no murmurs, rubs or gallops ABDOMEN: Soft, nontender, normoactive bowel sounds. No guarding, no rebound. No masses EXTREMITIES: Normal range of motion, no edema. No clubbing or cyanosis. No cords, erythema, or tenderness NEUROLOGICAL: Cranial nerves II through XII intact, L side weakness at baseline SKIN: Warm, Dry, normal turgor, no rashes or lesions noted. - Medical Decision Making 03/19/18 13:28 27 F with L posterior thigh pain. Will r/o DVT as well as arterial embolus given h/o embolic stroke, though unlikely as pt with no asymmetric swelling and strong pedal pulses bilaterally. Suspect msk sprain as pain started after pt did squats. Will r/o rhabdo. - Labs - Art/venous doppler - Tylenol Dopplers negative Labs wnl, no evidence of rhabdo. Pt is well appearing, with normal vitals. Clinically stable for DC at this time. I discussed the physical exam findings, ancillary test results and final diagnoses with the patient. I answered all of the patient's questions. The patient was satisfied with the care received and felt comfortable with the discharge plan and treatment plan. The patient agrees to follow up with the primary care physician within 24-72 hours.
[2018-03-19 13:32] LABS: URINE APPEARANCE CLEAR; URINE BILIRUBIN NEGATIVE (<2.0 mg/dL); URINE COLOR LTYELLOW; URINE GLUCOSE (UA) NEGATIVE (NEGATIVE); URINE KETONE 1+ (NEGATIVE); URINE LEUK ESTERASE NEGATIVE (NEGATIVE); URINE NITRITE NEGATIVE (NEGATIVE); URINE PROTEIN NEGATIVE (NEGATIVE); URINE UROBILINOGEN NEGATIVE mg/dL (0.2-1.0)
[2018-03-19 13:42] VITALS: BP 103/67; PULSE 82; TEMP 98.7
== END 2018-03-19 14:07 | disposition home or self-care (01) ==
LOC: JER 10:17
DX: O26.892 Other specified pregnancy related conditions, second trimester (principal); M79.652 Pain in left thigh; I69.854 Hemiplegia and hemiparesis following other cerebrovascular disease affecting left non-dominant side; Z3A.20 20 weeks gestation of pregnancy
CPT/HCPCS: 36415; 80053; 81003; 82550; 83735; 85025; 85610; 85730; 93926-TC; 93971-TC; 99283-25

== ENCOUNTER 2019-12-05 15:34 | Emergency (ER) | payer OTHER ==
--- NOTE | 2019-12-05 15:56 | PDOC ---
Rapid Medical Evaluation Time Seen by Provider: 12/05/19 15:39 Medical Evaluation: Allergies Allergy/AdvReac Type Severity Reaction Status Date / Time No Known Allergies Allergy Verified 06/13/18 17:16 12/05/19 15:48 HPI: 28 year old female hx of CVA brain aneurism, heart murmur anemia, presenting with 1 month of LOPEZ N/V (4 days ago) and abdominal pain. Denies fever chills weakness. PE: CTA RRR Neuro grossly intact A/P: Imaging differed to ED provider labs UA Pt to precede to ED for further evaluation and treatment. 12/05/19 15:53
[2019-12-05 16:09] VITALS: BMI 29.2
[2019-12-05 16:23] LABS: BASO % 0.5 % (0-2.0); EOS % 2.3 % (0-4.5); HEMOGLOBIN 10.5 GM/dL (10.7-15.3); LYMPH % 30.1 % (8-40); MCH 25.7 pg (25.7-33.7); MCHC 31.8 g/dl (32.0-36.0); MEAN CELL VOLUME 80.8 fl (80-96); MEAN PLT VOLUME 7.4 fl (7.5-11.1); MONO % 11.6 % (3.8-10.2); NEUT % 55.5 % (42.8-82.8); PLATELET COUNT 381 K/MM3 (134-434); RBC 4.09 M/mm3 (3.60-5.2); RDW 18.2 % (11.6-15.6); URINE APPEARANCE CLEAR; URINE BILIRUBIN NEGATIVE (NEGATIVE); URINE COLOR YELLOW; URINE GLUCOSE (UA) NEGATIVE (NEGATIVE); URINE KETONE NEGATIVE (NEGATIVE); URINE LEUK ESTERASE NEGATIVE (NEGATIVE); URINE NITRITE NEGATIVE (NEGATIVE); URINE PROTEIN NEGATIVE (NEGATIVE); URINE UROBILINOGEN 0.2 mg/dL (0.2-1.0); WHITE BLOOD COUNT 5.7 K/mm3 (4.0-10.0)
[2019-12-05 16:54] LABS: ALBUMIN 3.4 g/dl (3.4-5.0); ALK PHOS 60 U/L (45-117); ANION GAP 10 MMOL/L (8-16); BILIRUBIN,TOTAL 0.3 mg/dL (0.2-1); BLOOD UREA NITROGEN 9.4 mg/dL (7-18); CALCIUM 8.9 mg/dL (8.5-10.1); CHLORIDE 109 mmol/L (98-107); CO2 21 mmol/L (21-32); CREATININE 0.7 mg/dL (0.55-1.3); GLUCOSE,RANDOM 83 mg/dL (74-106); LIPASE 121 U/L (73-393); POTASSIUM 4.3 mmol/L (3.5-5.1); SGOT/AST 16 U/L (15-37); SGPT/ALT 19 U/L (13-61); SODIUM 139 mmol/L (136-145)
--- NOTE | 2019-12-05 18:21 | PDOC ---
History of Present Illness - General Chief Complaint: Headache Stated Complaint: ABD. PAIN Time Seen by Provider: 12/05/19 15:39 History Source: Patient Exam Limitations: No Limitations - History of Present Illness Initial Comments: 12/05/19 18:16 28-year-old female presents to ED with complaints of intermittent right-sided throbbing sensation over the past few weeks patient also states has had some intermittent dysuria over the past week and noted some white discharge upon wiping but denies any other symptoms. Patient denies any abdominal pain, fever, chills, irregular menses, dizziness, weakness, or gait imbalances. Patient does state history of CVA a few years ago and is concerned with her symptoms today. Patient took nothing for the above and decided come to the ER for further evaluation. Timing/Duration: reports: other Severity: Yes: mild, moderate Associated Symptoms: reports: denies symptoms Past History - Medical History Allergies/Adverse Reactions: Allergies Allergy/AdvReac Type Severity Reaction Status Date / Time No Known Allergies Allergy Verified 12/05/19 15:53 Home Medications: Ambulatory Orders 105/Iron/Folic AC/Dha [Prena1 True Combo Pack] 1 each PO DAILY 03/19/18 Anemia: Yes Asthma: No Cancer: No Cardiac Disorders: No CVA: Yes (lt side weakness 2012) COPD: No CHF: No Dementia: No Diabetes: No GI Disorders: No Disorders: No HTN: No Hypercholesterolemia: No Liver Disease: No Seizures: No Thyroid Disease: No - Surgical History Abdominal Surgery: No Appendectomy: No Cardiac Surgery: No Cholecystectomy: No Lung Surgery: No Neurologic Surgery: No Orthopedic Surgery: No - Reproductive History Is Patient Now?: No (#): 6 Para: 2 - Immunization History Immunization Up to Date: Yes - Psycho-Social/Smoking History Smoking History: Never smoked Have you smoked in the past 12 months: No Number of Cigarettes Smoked Daily: 0 - Substance Abuse Hx (Audit-C & DAST Scrn) How often the patient has a drink containing alcohol: Never Score: In Men: 4 or > Positive; In Women: 3 or > Positive: 0 Screen Result (Pos requires Nsg. Audit-10AR): Negative In the last yr the pt used illegal drug/Rx for NonMed reason: Yes Score: Yes response is considered Positive: 1 Screen Result (Positive result requires Nsg. DAST-10): Positive Review of Systems - Review of Systems Able to Perform ROS?: No Is the patient limited French proficient: No Constitutional: No: Symptoms Reported HEENTM: No: Symptoms Reported Respiratory: No: Symptoms reported Cardiac (ROS): No: Symptoms Reported ABD/GI: No: Symptoms Reported : No: Symptoms Reported Musculoskeletal: No: Symptoms Reported Neurological: Yes: Headache Endocrine: No: Symptoms Reported Hematologic/Lymphatic: No: Symptoms Reported *Physical Exam - Vital Signs Last Vital Signs Temp Pulse Resp BP Pulse Ox 99.2 F 80 20 115/53 L 100 12/05/19 15:54 12/05/19 15:54 12/05/19 15:54 12/05/19 15:54 12/05/19 15:54 - Physical Exam General Appearance: Yes: Nourished, Appropriately Dressed. No: Apparent Distress HEENT: negative: Pale Conjunctivae Neck: positive: Supple Respiratory/Chest: positive: Lungs Clear, Normal Breath Sounds. negative: Respiratory Distress, Accessory Muscle Use Cardiovascular: positive: Regular Rhythm, Regular Rate. negative: Murmur Gastrointestinal/Abdominal: positive: Soft. negative: Tenderness Extremity: positive: Normal Inspection Integumentary: positive: Normal Color, Warm, Moist Neurologic: positive: Motor Strength 5/5 (ambulatory) ED Treatment Course - LABORATORY CBC & Chemistry Diagram: 12/05/19 16:02 12/05/19 16:02 - ADDITIONAL ORDERS Additional order review: Laboratory Results 12/05/19 12/05/19 16:02 16:02 Sodium 139 Potassium 4.3 Chloride 109 H Carbon Dioxide 21 Anion Gap 10 BUN 9.4 Creatinine 0.7 Est GFR (CKD-EPI)AfAm 136.66 Est GFR (CKD-EPI)NonAf 117.91 Random Glucose 83 Calcium 8.9 Total Bilirubin 0.3 AST 16 ALT 19 Alkaline Phosphatase 60 Total Protein 7.0 Albumin 3.4 Lipase 121 Beta HCG, Quant < 1.0 Urine Color Yellow Urine Appearance Clear Urine pH 6.0 Ur Specific [place] 1.008 L Urine Protein Negative Urine Glucose (UA) Negative Urine Ketones Negative Urine Blood Negative Urine Nitrite Negative Urine Bilirubin Negative Urine Urobilinogen 0.2 Ur Leukocyte Esterase Negative 12/05/19 16:02 RBC 4.09 MCV 80.8 MCHC 31.8 L RDW 18.2 H MPV 7.4 L Neutrophils % 55.5 D Lymphocytes % 30.1 D Monocytes % 11.6 H Eosinophils % 2.3 Basophils % 0.5 - RADIOLOGY Radiology Studies Ordered: Category Date Time Status HEAD CT WITHOUT CONTRAST [CT] Stat CT Scan 12/05/19 17:07 Completed Medical Decision Making - Medical Decision Making 12/05/19 18:15 Chief complaint: Patient with headache and is concerned with due to her history of CVA a few years ago. Patient has no other complaints of her mild dysuria and noted white discharge upon wiping today. Exam: Patient with no neurofocal deficits no abdominal tenderness vital signs stable. Plan: Head CT, CBC, comp, urinalysis GC chlamydia No CT evidence of acute intracranial pathology. Chronic right frontal cortical/subcortical infarct is noted. 12/05/19 18:20 12/05/19 18:21 Laboratory Tests 12/05/19 12/05/19 12/05/19 16:02 16:02 16:02 WBC 5.7 Hgb 10.5 L Hct 33.0 MCHC 31.8 L RDW 18.2 H MPV 7.4 L Absolute Neuts (auto) 3.2 Neutrophils % 55.5 D Lymphocytes % 30.1 D Monocytes % 11.6 H Sodium 139 Potassium 4.3 Chloride 109 H Carbon Dioxide 21 Anion Gap 10 BUN 9.4 Creatinine 0.7 Random Glucose 83 Calcium 8.9 Total Bilirubin 0.3 AST 16 Alkaline Phosphatase 60 Total Protein 7.0 Albumin 3.4 Beta HCG, Quant < 1.0 Ur Specific [place] 1.008 L Urine Bilirubin Negative Ur Leukocyte Esterase Negative Discharge - Discharge Information Problems reviewed: Yes Clinical Impression/Diagnosis: Headache Condition: Good Disposition: HOME - Follow up/Referral Referrals: Tee Reza [Primary Care Provider] - - Patient Discharge Instructions Patient Printed Discharge Instructions: DI for Headache Additional Instructions: Your CAT scan labs and urine are essentially normal. You will be notified if your testing for STIs come back positive. Otherwise follow-up with your neurologist - Post Discharge Activity
[2019-12-05 18:45] VITALS: BP 110/62; PULSE 84; TEMP 98.9
== END 2019-12-05 18:46 | disposition home or self-care (01) ==
LOC: JER 15:34
DX: R51 Headache (principal)
CPT/HCPCS: 36415; 70450-TC; 80053; 81003; 83690; 84702; 85025; 87086; 87491; 87591; 99284-25

== ENCOUNTER 2021-09-04 19:47 | Emergency (ER) | payer OTHER ==
[2021-09-04 19:57] VITALS: BP 134/87; PULSE 96; TEMP 98.6; BMI 28.8
[2021-09-04] MEDS ORDERED: KETOROLAC TROMETHAMINE 30 MG/1 ML VIAL ONE (21:26)
[2021-09-04] MEDS ORDERED: KETOROLAC TROMETHAMINE 30 MG/1 ML VIAL IM ONE (21:32)
== END 2021-09-04 23:40 | disposition home or self-care (01) ==
LOC: JER 19:47
PROC: 3E0233Z Introduction of Anti-inflammatory into Muscle, Percutaneous Approach (ICD-10-PCS; principal; 2021-09-04)
DX: M79.605 Pain in left leg (principal)
CPT/HCPCS: 73590-TC-LT-FY; 93971-TC; 99284-25